=== PATIENT | female | born 2005 | race American Indian/Alaskan Native ===

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

== ENCOUNTER 2025-08-18 11:28 | Inpatient (IN) | payer MEDICAID ==
[2025-08-18] MEDS ORDERED: Sodium Chloride 0.9% 10 ML Syringe FLUSH PRN ×2 (11:59→15:02)
[2025-08-18] MEDS ORDERED: Carboprost Tromethamine 250 MCG/1 mL Vial IM PRN ×2 (11:59→15:02)
[2025-08-18] MEDS ORDERED: Ondansetron 4 MG/2 ML SDV IVPUSH PRN (11:59)
[2025-08-18] MEDS ORDERED: Oxytocin/Lactated Ringers 30 UNIT/500 ML BAG IV SCH (12:00)
[2025-08-18 12:07] LABS: PLATELET COUNT,PLT 264.0 10^3/uL (150-450); RED BLOOD CELL COUNT 4.25 10^6/uL (4.2-5.4); WHITE BLOOD CELL COUNT,WBC 10.7 10^3/uL (5.0-10.0)
[2025-08-18] MEDS: Lactated Ringers 1,000 ML IV ONE (12:20)
[2025-08-18] MEDS: Lactated Ringers 1,000 ML IV SCH (12:20)
[2025-08-18] MEDS ORDERED: ePHEDrine 50 MG/ML SDV IVPUSH PRN (12:58)
[2025-08-18] MEDS ORDERED: Ropivacaine 200 MG in Premix Bag 1 BAG EPIDUR SCH (13:00)
[2025-08-18] MEDS: Oxytocin/Normal Saline 30 UNIT/500 ML BAG IV SCH (14:50)
[2025-08-18] MEDS ORDERED: Oxytocin 10 Units/1 ML SDV IM PRN (15:02)
[2025-08-18] MEDS: Benzocaine/Menthol 20%-0.5% Spray 78 GM Cannister TOP PRN (15:39)
[2025-08-18] MEDS ORDERED: Oxytocin/Normal Saline 30 UNIT/500 ML BAG IV SCH (16:35)
[2025-08-18] MEDS ORDERED: Witch Hazel Medicated Pads 100/Jar TOP PRN (16:57)
[2025-08-19 09:04] LABS: PLATELET COUNT,PLT 220.0 10^3/uL (150-450); RED BLOOD CELL COUNT 3.23 10^6/uL (4.2-5.4); WHITE BLOOD CELL COUNT,WBC 11.3 10^3/uL (5.0-10.0)
[2025-08-19] MEDS: Prenatal Multivitamin with Calcium/Folic Acid/Iron Tab PO SCH (09:22)
[2025-08-20 09:05] VITALS: BP 126/68; PULSE 74
== END 2025-08-20 11:00 | disposition home or self-care (01) | DRG 807 ==
LOC: DL.OBCHECK 11:28 → DL.OB 11:59 → OBSVTOIN 14:41
PROVIDERS: ADMIT Family Medicine; ATTEND Family Medicine
PROC: 10E0XZZ Delivery of Products of Conception, External Approach (ICD-10-PCS; principal; 2025-08-18)
PROC: 3E0R3BZ Introduction of Anesthetic Agent into Spinal Canal, Percutaneous Approach (ICD-10-PCS; principal; 2025-08-18)
DX: O99.02 Anemia complicating childbirth (principal); Z37.0 Single live birth; Z3A.37 37 weeks gestation of pregnancy; Z79.899 Other long term (current) drug therapy
CPT/HCPCS: 36415; 51702; 59409; 85027; A9270-GY; J2371; J2590; J7120